=== PATIENT | male | born 1945 | race Caucasian/White ===

== ENCOUNTER → 2016-10-16 | Day surgery (SDC) | payer MEDICARE ==
[~2016-10-16] MED LIST: Acetaminophen TAB* 325 MG PO PRN; Buffered Lidocaine 1% SYR 3ML* 3 ML/SYR SYRINGE INTRADERM ONE; Buffered Lidocaine 1% SYR 3ML* 3 ML/SYR SYRINGE ONE; Bupivacaine 0.25% EPI 200,000* 30 ML SDV ONE; Bupivacaine 0.25% W/EPI* 50 ML VIAL ONE; Bupivacaine 0.5% W/EPI SDV* 30 ML VIAL ONE; Dexamethasone IV* 4 MG/ML 1 ML (4 MG) ONE; DiMENhydriNATE IV* 50 MG/ML VIAL IV PUSH PRN; Famotidine IV* 10 MG/ML 2 ML (20 mg) ONE; HYDROcodone/ACETAMIN 5-325 MG* 1 TAB PO PRN; KETAMINE HCL* 50 MG/ML 10 ML VIAL ONE; Lidocaine 2% MPF* 2 ML VIAL ONE; Methylene Blue 1%* 10 ML VIAL ONE; Midazolam* 1 MG/ML 2 ML VIAL (2 MG) ONE; NS 0.9% 1000 ML* 1,000 ML IV SCH; Ondansetron INJ* 2 MG/ML VIAL IV PRN; Propofol* 10 MG/ML 20 ML BTL IV PUSH ONE; ceFAZolin 2 GM PREMIX (*) 2 GM/50 ML BAG IVPB ONE
[2016-10-16 13:17] VITALS: BP 135/63
== END | disposition home or self-care (01) ==
LOC: OR 08:01
PROVIDERS: ATTEND Plastic Surgery
DX: C44.229 Squamous cell carcinoma of skin of left ear and external auricular canal (principal); I34.0 Nonrheumatic mitral (valve) insufficiency; I35.0 Nonrheumatic aortic (valve) stenosis; R00.1 Bradycardia, unspecified; E03.9 Hypothyroidism, unspecified; E27.40 Unspecified adrenocortical insufficiency
CPT/HCPCS: 88305; 88329; J0690; J1100; J2250; J2704

== ENCOUNTER → 2018-01-28 | Day surgery (SDC) | payer MEDICARE ==
[~2018-01-28] MED LIST changes: -Buffered Lidocaine 1% SYR 3ML* 3 ML/SYR SYRINGE INTRADERM ONE; -Buffered Lidocaine 1% SYR 3ML* 3 ML/SYR SYRINGE ONE; -Bupivacaine 0.25% EPI 200,000* 30 ML SDV ONE; -Bupivacaine 0.25% W/EPI* 50 ML VIAL ONE; -Bupivacaine 0.5% W/EPI SDV* 30 ML VIAL ONE; -Dexamethasone IV* 4 MG/ML 1 ML (4 MG) ONE; -DiMENhydriNATE IV* 50 MG/ML VIAL IV PUSH PRN; +Diazepam TAB(*) 5 MG ONE; -Famotidine IV* 10 MG/ML 2 ML (20 mg) ONE; -HYDROcodone/ACETAMIN 5-325 MG* 1 TAB PO PRN; +Heparin 2 UNITS/ML IVPREMIX* 2,000 ML IV ONE; +Heparin(*) 1000 UNIT/ML 10 ML VIAL CATH LAB IV ONE; +Iohexol 350 (CONTRAST) 200 ML MDV IV ONE; -KETAMINE HCL* 50 MG/ML 10 ML VIAL ONE; +Lidocaine 1% INJ* 10 MG/ML 30 ML SDV ONE; -Lidocaine 2% MPF* 2 ML VIAL ONE; -Methylene Blue 1%* 10 ML VIAL ONE; +Midazolam* 1 MG/ML 10 ML VIAL (10 MG) ONE; -Midazolam* 1 MG/ML 2 ML VIAL (2 MG) ONE; +Nitroglycerin TAB 0.4 MG* 0.4 MG TAB SL PRN; -Ondansetron INJ* 2 MG/ML VIAL IV PRN; -Propofol* 10 MG/ML 20 ML BTL IV PUSH ONE; +VERAPAMIL 2.5 MG/ML 2 ML VIAL ** 5 mg/2 ml ONE; -ceFAZolin 2 GM PREMIX (*) 2 GM/50 ML BAG IVPB ONE; +fentaNYL* 50 MCG/ML 2 ML VIAL (100 MCG VIAL) ONE; +nitroGLYCERIN DRIP* 25,000 MCG/250 ML BTL ONE
[2018-01-28 13:28] VITALS: BP 113/76
--- NOTE | 2018-01-29 11:33 | CATH ---
CC: Dr. Christopher Diego* CARDIAC CATHETERIZATION: DATE OF PROCEDURE: 01/28/18 PROCEDURE: Cardiac catheterization including coronary angiography. INDICATION: Aortic stenosis. The patient is a 72-year-old gentleman with a history of aortic stenosis who has demonstrated progression of his aortic stenosis. The patient clearly has moderate- to-severe aortic stenosis. The patient has shortness of breath with exertion. Cardiac catheterization was recommended in preparation for aortic valve replacement. DESCRIPTION OF PROCEDURE: The patient was brought to the cardiac catheterization lab in a fasting state. Informed consent had been obtained prior to the procedure. All labs have been reviewed. The patient was placed supine on the procedure table. His right wrist was prepped and draped in the usual fashion. 1% lidocaine was used for local anesthesia. The right radial artery was entered by a Seldinger technique and guidewire was placed. Over the guidewire, a 6-Emirati hydrophilic sheath was placed. The patient underwent coronary angiography using a 6-Emirati TIG catheter. At the end of the procedure , all sheaths and catheters were removed. The patient tolerated the procedure well with no complications. The patient was infused with 3000 of heparin, 300 mcg of nitroglycerin and 3 mg of verapamil intraarterially during the procedure. FINDINGS: 1. Left main artery: The left main was normal in size. It bifurcated into the LAD and circumflex. There was no evidence of stenosis. 2. Left anterior descending artery: The LAD was normal in size. It had mild calcification of the proximal vessel. It gave off 2 diagonal vessels. There was no evidence of stenosis. 3. Left circumflex artery. The circumflex artery was normal in size. It gave off 1 obtuse marginal branch. There was no evidence of stenosis. 4. Right coronary artery: The RCA was a large dominant vessel, it gave off PDA. There was mild calcification of the proximal vessel. There was no evidence of stenosis. The patient did have PDA and posterolateral branches off the distal right coronary artery. IMPRESSION: 1. Mild calcification of the proximal left anterior descending and proximal right coronary artery. 2. No significant coronary artery disease. 3. Successful radial artery catheterization. RECOMMENDATION: The patient will be evaluated for aortic valve replacement. [id number] #: [id number] [facility] HOSPITALKenneth
== END | disposition home or self-care (01) ==
LOC: CHICATH 08:14
PROVIDERS: ATTEND Specialist
DX: I35.0 Nonrheumatic aortic (valve) stenosis (principal); R06.02 Shortness of breath; E03.9 Hypothyroidism, unspecified; E27.40 Unspecified adrenocortical insufficiency; Z87.891 Personal history of nicotine dependence
CPT/HCPCS: 93454; 99156; 99157; A9270-GY; J1644; J2250; J3010

== ENCOUNTER 2018-04-16 15:20 | Observation (INO) | payer MEDICARE ==
[2018-04-16] MEDS ORDERED: metroNIDAZOLE IV 500 MG/100ML* 500 MG/100 ML BAG IVPB ONE (15:28)
[2018-04-16] MEDS ORDERED: Cefepime(*) 2 GM in NS 0.9% 50 ML* 50 ML IVPB ONE (15:28)
[2018-04-16] MEDS ORDERED: Lactated Ringers 1000 ml Bag*IV.FLUID IV ONE (15:28)
[2018-04-16] MEDS ORDERED: Acetaminophen TAB* 325 MG PO ONE (15:30)
--- OUTSIDE RECORDS SUMMARY | 2018-04-16 15:31 | XMS REPORT ---
:1945 External Reference #:[id number] Author Organization [facility] Address [address] [place] [address] [place] [address] Phone [phone] Care Team Providers Name Role Phone Saloni Grande MD Care Team Information Group Work Program Aide Unavailable Saloni Grande MD Primary Care Physician Unavailable Payers Type Date Identification Numbers Payment Provider Subscriber Health Maintenance Effective: Policy Number: Medicare Scottie Gonzalez (O) 09/16/2013 [id number] o Group Number: [id number] [address] [address] PayID: [id number] RajeevCJ oliver [id number] Problems Description No Information Family History Date Family Member(s) Problem(s) Comments Mother Alzheimer's Disease Social History Type Date Description Comments Occupation Retired ETOH Use Rarely consumes alcohol Recreational Drug Use Never Used Drugs Smoking Patient is a former smoker quit 40 year ago Daily Caffeine Consumes on average 3 cups of regular coffee per day Exercise Type/Frequency Exercises regularly Allergies, Adverse Reactions, Alerts Date Description Reaction Status Severity Comments 10/01/2014 NKDA active 01/22/2018 Latex active Medications Medication Date Status Form Strength Qnty SIG Indications Ordering Provider Dha Active Capsules 400mg 1 cap Carlo Parry 015 per Brand, day(trey M.D. ing 500mg ) Turmeric Active Capsules 200mg 1 by Carlo D. 015 mouth Brand, every M.D. day Levothyroxine Active Tablets 100mcg 90tabs 1 by Unknown Sodium 000 mouth every day Co Q 10 Active Capsules 50mg daily Unknown 000 Fish Oil 00/00/0 Active Capsules 1000mg 1 by Unknown 000 mouth every day Vit E 0 Active 400mg 1 tab q Unknown 000 day Jessica-C 0 Active Crystals 500mg 1 tab Unknown 000 per day Vit D3 0 Active 1 per Unknown 000 day Dhea 0 Active Capsules 25mg 1 by Unknown 000 mouth every day Multivitamin 0 Active Tablets 1 by Unknown 000 mouth every day Warfarin Sodium 0 Active Tablets 2mg Kevin, 000 MD Saloni Metoprolol Active Tablets ER 25mg 1 by Unknown Succinate ER 000 24HR mouth every day Cortef 0 Hx Tablets 10mg 1 tab Unknown 000 - in am and 09/17 018 in pm Vital Signs Date Vital Result Comment 04/02/2018 Height 64.5 inches 5'4.50" Weight 146.00 lb w/ shoes Heart Rate 68 /min BP Systolic Sitting 134 mmHg Rue reg cuff BP Diastolic Sitting 74 mmHg Rue reg cuff BP Systolic Standing 132 mmHg Rue BP Diastolic Standing 74 mmHg Rue Respiratory Rate 16 /min BMI (Body Mass Index) 24.7 kg/m2 Ejection Fraction 60-65% as of 12/2017 echo 02/04/2018 Height 64.5 inches 5'4.50" Weight 147.00 lb with shoes Heart Rate 50 /min BP Systolic Sitting 104 mmHg Rue reg cuff BP Diastolic Sitting 54 mmHg Rue reg cuff BP Systolic Standing 110 mmHg Rue reg cuff BP Diastolic Standing 60 mmHg Rue reg cuff Respiratory Rate 16 /min BMI (Body Mass Index) 24.8 kg/m2 Ejection Fraction 60-65% date 01/01/18 ECHO 01/22/2018 Height 64.5 inches 5'4.50" Weight 147.00 lb with shoes Heart Rate 56 /min BP Systolic Sitting 102 mmHg Lue reg cuff BP Diastolic Sitting 70 mmHg Lue reg cuff BP Systolic Standing 114 mmHg Lue reg cuff BP Diastolic Standing 70 mmHg Lue reg cuff Respiratory Rate 16 /min BMI (Body Mass Index) 24.8 kg/m2 Ejection Fraction 60-65% date 01/01/2018 ECHO 10/28/2014 Height 64.5 inches 5'4.50" Weight 155.00 lb with shoes Heart Rate 60 /min regular BP Systolic Sitting 110 mmHg right arm reg cuff BP Diastolic Sitting 68 mmHg right arm reg cuff BP Systolic Standing 106 mmHg right arm reg cuff BP Diastolic Standing 66 mmHg right arm reg cuff Respiratory Rate 18 /min BMI (Body Mass Index) 26.2 kg/m2 10/01/2014 Height 64.5 inches 5'4.50" Weight 153.00 lb without shoes Heart Rate 58 /min BP Systolic 162 mmHg r arm reg cuff BP Diastolic 88 mmHg r arm reg cuff BP Systolic Sitting 158 mmHg L arm BP Diastolic Sitting 82 mmHg L arm BP Systolic Standing 156 mmHg L arm BP Diastolic Standing 78 mmHg L arm Respiratory Rate 18 /min BMI (Body Mass Index) 25.9 kg/m2 Results Test Date Test Result H/L Range Note CBC Auto Diff 01/23/2018 White Blood Count 6.2 10^3/uL 3.5-10.8 Red Blood Count 3.84 10^6/uL Low 4.0-5.4 Hemoglobin 12.7 g/dL Low 14.0-18.0 Hematocrit 36 % Low 42-52 Mean Corpuscular Volume 94 fL 80-94 Mean Corpuscular Hemoglobin 33 pg High 27-31 Mean Corpuscular HGB Conc 35 g/dL 31-36 Red Cell Distribution Width 14 % 10.5-15 Platelet Count 238 10^3/uL 150-450 Mean Platelet Volume 8.3 um3 7.4-10.4 Abs Neutrophils 3.7 10^3/uL 1.5-7.7 Abs Lymphocytes 1.6 10^3/uL 1.0-4.8 Abs Monocytes 0.7 10^3/uL 0-0.8 Abs Eosinophils 0.2 10^3/uL 0-0.6 Abs Basophils 0.1 10^3/uL 0-0.2 Abs Nucleated RBC 0 10^3/uL Granulocyte % 58.8 % 38-83 Lymphocyte % 25.6 % 25-47 Monocyte % 11.5 % High 0-7 Eosinophil % 3.0 % 0-6 Basophil % 1.1 % 0-2 Nucleated Red Blood Cells % 0.1 Inr/Protime 01/23/2018 Inr 0.95 0.77-1.02 Laboratory test finding 01/23/2018 Partial Thrombo Time 32.3 seconds 26.0 -36.3 PTT Basic Metabolic Panel 01/23/2018 Sodium 129 mmol/L Low 139-145 Potassium 4.5 mmol/L 3.5-5.0 Chloride 98 mmol/L Low 101-111 Co2 Carbon Dioxide 24 mmol/L 22-32 Anion Gap 7 mmol/L 2-11 Glucose 89 mg/dL 70-100 Blood Urea Nitrogen 19 mg/dL 6-24 Creatinine 1.00 mg/dL 0.67-1.17 BUN/Creatinine Ratio 19.0 8-20 Calcium 9.4 mg/dL 8.6-10.3 Egfr Non- 73.2 >60 Egfr 94.2 >60 1 Pre Cath Panel 01/22/2018 Partial Thrombo Time PTT <pending> 1 Because ethnic data is not always readily available, this report includes an eGFR for both -Americans and non- Americans. The National Kidney Disease Education Program (NKDEP) does not endorse the use of the MDRD equation for patients that are not between the ages of 18 and 70, are , have extremes of body size, muscle mass, or nutritional status, or are non- or non-. According to the National Kidney Foundation, irrespective of diagnosis, the stage of the disease is based on the level of kidney function: Stage Description GFR(mL/min/1.73 m(2)) 1 Kidney damage with normal or decreased GFR 90 2 Kidney damage with mild decrease in GFR 60-89 3 Moderate decrease in GFR 30-59 4 Severe decrease in GFR 15-29 5 Kidney failure <15 (or dialysis) Procedures Date CPT Code Description Status 04/02/2018 22317 EKG Tracing & Interpretation Completed 01/28/2018 25403 Cath PLMT&NJX L Ventriculog Img S&I Completed 01/01/2018 87346 ECHO Transthoracic, Real-Time 2D With Doppler And Color Completed Flow 01/01/2018 94883 ECHO Transthoracic, Real-Time 2D With Doppler And Color Completed Flow 12/13/2016 04607 Carotid Doppler,Bilateral Completed 12/12/2016 42844 ECHO Transthoracic, Real-Time 2D With Doppler And Color Completed Flow 08/04/2015 61483 Sleep Study Unattended,HRT Rate,Oxygen Sat,Resp Completed Effort/Airflow 10/19/2014 91755 Treadmill Interp/Report Only Completed 10/19/2014 59762 Stress Test Supervsn W/Out I/R Completed 10/08/2014 38348 Carotid Doppler,Bilateral Completed 10/01/2014 78696 EKG Tracing & Interpretation Completed 08/23/2014 30583 ECHO Transthoracic, Real-Time 2D With Doppler And Color Completed Flow Encounters Type Date Location Provider CPT E/M Dx Office Visit 02/04/2018 [facility] Julee BraulioKemi Hughes, [id number] I35.0 3:30p 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 Office Visit 01/22/2018 [facility] Carlo Luther, 61939 I35.0 11:15a Sergey Rhoades Office Visit 10/28/2014 [facility] Carlo Luther, 95300 786.05 10:45a Sergey Rhoades 424.1 Office Visit 10/01/2014 11:00a [facility] Carlo Luther, 88858 424.1 Sergey Rhoades 786.05 785.9 Plan of Care Future Appointment(s):06/04/2018 9:00 am - Carlo Luther M.D. at [facility]05/30/2018 2:00 pm - [facility] ECHO Schedule at [facility]04/02/2018 - Carlo Luther M.D.I35.0 Nonrheumatic aortic (valve) [id number] Presence of prosthetic heart valveNew Orders:EchocardiogramFollow up:2 months
[2018-04-16] MEDS ORDERED: Vancomycin(*) 1,000 MG VIAL IVPB SCH (16:00)
[2018-04-16] MEDS ORDERED: Vancomycin(*) 1,000 MG - ED ONCE IVPB ONE ×2 (16:00)
[2018-04-16 16:19] LABS: INR 1.07 (0.77-1.02)
[2018-04-16 16:22] LABS: ABS Basophils 0 10^3/ul (0-0.2); ABS Eosinophils 0 10^3/ul (0-0.6); ABS Lymphocytes 0.5 10^3/ul (1.0-4.8); ABS Monocytes 1.2 10^3/ul (0-0.8); ABS Neutrophils 10.8 10^3/ul (1.5-7.7); ABS Nucleated RBC 0 10^3/ul; Eosinophil % 0.1 % (0-6); Hematocrit 33 % (42-52); Hemoglobin 11.4 g/dl (14.0-18.0); Lymphocyte % 3.7 % (25-47); Mean Corpuscular HGB Conc 34 g/dl (31-36); Mean Corpuscular Hemoglobin 31 pg (27-31); Mean Corpuscular Volume 91 fL (80-94); Mean Platelet Volume 7.5 um3 (7.4-10.4); Nucleated Red Blood Cells % 0; Platelet Count 145 10^3/ul (150-450); Red Blood Count 3.62 10^6/ul (4.00-5.40); Red Cell Distribution Width 16 % (10.5-15); White Blood Count 12.4 10^3/ul (3.5-10.8)
[2018-04-16] MEDS ORDERED: NS 0.9% 50 ML* 50 ML ONE (16:23)
[2018-04-16 16:32] LABS: EGFR Non-African American 64.9 (>60)
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
--- NOTE | 2018-04-16 16:37 | RAD ---
INDICATION: Syncope COMPARISON: None. TECHNIQUE: Single AP portable view of the chest was obtained. FINDINGS: Image quality is compromised due to the relative inferiority of a portable chest x-ray. Postsurgical changes include sternotomy wires overlying the mediastinum. The heart and mediastinum exhibit normal size and contour. There are coarsely calcified plaques overlying the bilateral hemidiaphragm at the lung bases. Otherwise the lungs are grossly clear. There is no evidence of a large pleural effusion. Visualized bones are normal for the patient's age. IMPRESSION: 1. No radiographic evidence for acute cardiopulmonary abnormality on this portable chest x-ray. 2. Coarsely calcified plaques overlying the bilateral hemidiaphragm. Please correlate to prior asbestos exposure.
[2018-04-16] MEDS ORDERED: Acetaminophen TAB* 325 MG PO PRN (17:55)
[2018-04-16] MEDS ORDERED: metroNIDAZOLE IV 500 MG/100ML* 500 MG/100 ML BAG IVPB SCH (18:00)
[2018-04-16] MEDS ORDERED: cefTRIAXone(*) 1 GM in NS 0.9% 50 ML* 50 ML IVPB SCH ×2 (18:00→23:00)
[2018-04-16] MEDS ORDERED: NS 0.9% 1000 ML* 1,000 ML IV SCH (18:00)
[2018-04-16] MEDS ORDERED: Cefepime 2 GM in Dextrose(*) 2 GM/50 ML BAG IV ONE (18:00)
[2018-04-16] MEDS: Hydrocortisone INJ* 100 MG VIAL IV SCH (23:23)
[2018-04-16] MEDS: Heparin VIAL(*) 5000 UNITS/ML VIAL (FIVE THOUSAND) SUBCUT SCH (23:29)
[2018-04-17] MEDS: metroNIDAZOLE IV 500 MG/100ML* 500 MG/100 ML BAG IVPB SCH ×2 (00:07→09:04)
--- NOTE | 2018-04-17 02:03 | HP ---
CC: Dr. Saloni Grande; Dr. Luther * HISTORY AND PHYSICAL: DATE OF ADMISSION: 04/16/18. PRIMARY CARE PROVIDER: Dr. Saloni Grande. PRIMARY SAFETY SCIENTIST: Dr. Luther. MY ATTENDING PHYSICIAN WHILE IN THE HOSPITAL: Sarah Goyal DO * (report dictated by Ace Lay NP). CHIEF COMPLAINT: 1. Dizziness. 2. Redness to right forearm. HISTORY OF PRESENT ILLNESS: Mr. Mendoza is a 72-year-old male patient, who last night, he was sitting down, he had an episode where he was holding his cat. The patient changed positions quickly, the cat got upset and scratched his right arm pretty significantly. He overnight had chills. The said that he looked like he was having rigors. She said that he was having chills. He was shaking. He was drenched in sweat. She wanted him to go to the ER today, but he felt that he did not need to. Throughout the day today, he has had 3 episodes where he just got really dizzy, felt like he was almost going to faint. He did not faint. He said he has felt really dizzy. He felt like he was just very lightheaded, it was mostly positional. He denied having any sensation of the room spinning. He says that he most likely probably had a fever last night. He was documented to have one here today. He says he has been eating and drinking like he normally does. He does state that he had a recent valve replacement. He saw his primary parachute rigger week- and-a-half ago and everything was okay. He stopped his warfarin and amiodarone. He had a bovine valve placed to his aortic valve for severe aortic stenosis. He is denying any chest pain. He does not feel short of breath. He denies any palpitations and says he did not pass out. He says that he got dizzy today to the point where he tripped and fell, and he landed on his side, but he is not having any discomfort or pain. He denies having any, again, no syncope. He denied any trouble with his speech. He says his gait has not been off, he has been walking normally. He says he has not had any facial drooping and no weakness to one side. He was just concerned though because of his dizziness and the fact that it was noted by this afternoon that his arm was getting more red, it was starting to spread up towards his elbow and it was very painful to try to make a fist or open his right hand. He came into the ED today, it was noted that he had an elevated white count. In addition to this, he had a left shift on his differential. He had a mild fever. There was concern also because of these episodes where he was having dizziness and we were asked to evaluate for admission. PAST MEDICAL HISTORY: Significant for: 1. Aortic stenosis, status post bovine valve placement. 2. Hypothyroidism. 3. Adrenal hypofunction, which he does not take steroids for. PAST SURGICAL HISTORY: He has had aortic valve replacement, done 6 weeks ago with a bovine valve. HOME MEDICATIONS: Include: 1. Synthroid 100 mcg p.o. daily. 2. Vitamin E 400 units p.o. daily. 3. Co-enzyme Q10 200 mg daily. 4. Turmeric 200 mg p.o. daily. 5. DHEA 400 mg p.o. daily. 6. [place]-3 fatty acids 1000 mg daily. 7. DHA 600 mg daily. 8. D3 4000 units daily. 9. Vitamin C 500 mg daily. 10. Multivitamin 1 tablet daily. ALLERGIES TO MEDICATIONS: Include no known drug allergies. FAMILY HISTORY: Mother has a history of dementia. Father had a history of [place]. SOCIAL HISTORY: The patient does not smoke. He does not drink. Surrogate decision maker is his . REVIEW OF SYSTEMS: There is a documented fever here. He does not have any chills overnight. He denies any significant weight change. There is no double vision. He denies having any ear discharge. There is no rhinorrhea. Denies having any sore throat. There is no thyroid enlargement. Denies having any chest pain. There is no orthopnea. There is no nocturnal dyspnea. Denies having any abdominal pain. There is no nausea. No vomiting. There is no dysuria. There is no frequency. There is no seizure. He denied any loss of consciousness. Review of 14 systems was completed, all others negative. PHYSICAL EXAMINATION GENERAL: At this time, Mr. Mendoza is a 72-year-old male patient. He is sitting in the ED stretcher. He does not appear to be in any acute distress. He appears to be well-nourished and well-developed. VITAL SIGNS: Blood pressure 110/59, pulse 82, respirations 20, O2 sat 95%, temperature 100.9. HEENT: Head: Atraumatic and normocephalic. Eyes: EOMs are intact. Sclerae anicteric and not pale. Throat: Oral mucosa appears to be moist. No oropharyngeal erythema. NECK: Supple. LUNGS: Clear to auscultation bilaterally. No wheezes, rales, or rhonchi. HEART: Sounds S1, S2. He has a grade 2 to 3 aortic murmur. ABDOMEN: Soft, flat, nontender. Bowel sounds were present. EXTREMITIES: Pulses were 2+ throughout. He had 5/5 strength, particularly the right upper extremity, he had supination, pronation of the right upper extremity. He had flexion and extension of the fingers and he had full mobility of the wrist on the right side. He had good 5/5 strength in bilateral upper extremities. He had some erythema to the mid forearm extending up to just below the elbow, but again he had good range of motion to the elbow, into the wrist, into his fingers of that right arm, which is the affected arm. NEUROLOGICALLY: He is awake. He is alert. He is oriented x3. Speech is clear. Tongue midline. Home Health Occupational Therapist were equal. He had no gross focal deficits. SKIN: Intact exception of the puncture sites from the cat scratch. DIAGNOSTIC STUDIES/LAB DATA: Labs today, revealing a WBC 12.4, RBC of 3.62, hemoglobin 11.4, hematocrit 33, platelet count of 145, INR of 1.07. PTT 26.1. Sodium of 128, potassium of 3.7, chloride 99, bicarb was 21, BUN 20, creatinine 1.11, glucose 123, lactic 0.9, calcium 1.6. Total bili 0.5. AST 23, ALT 17. Alk phos 27. Troponin 0.01. Albumin was 3.5. He did have a chest x-ray obtained today, which revealed no radiographic evidence for acute cardiopulmonary abnormality on this portable x-ray. 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 He had an EKG obtained today, showing a normal sinus rhythm with a left axis deviation rate of 77. No ST elevations or T-wave inversions. He did have a heart catheterization done in January with Dr. Luther, which showed again normal coronary arteries, but a severe AF. Old medical records reviewed. ASSESSMENT AND PLAN: Mr. Mendoza is a 72-year-old male patient coming into the ER today with complaints of dizzy spells. He has had 3 of them today. He is very adamant that he did not passed out with these episodes. We were asked to evaluate for admission. He will be admitted under observation status for: 1. Dizziness. At this point, you know it could be secondary to orthostasis. He does have a history of adrenal hypofunction. I would like to get a random cortisol level. I think he does observe orthostatic blood pressures. In addition to all this and echo. We will cycle his troponins. Place him on telemetry to monitor for any arrhythmias. We will repeat the echo tomorrow. He is stable now. He has responded to fluids. He says he is feeling better. I am going to put him on stress steroids empirically. We could consider getting touch base with Dr. Stockton tomorrow as he did see him previously to see if he has any further recommendations. We will get his TSH and cortisol level. If he continues to have dizzy spells then I certainly would get a CT of the brain, possibly MRI and get Neurology input, but he is nonfocal on exam so I think this is probably secondary to the dehydration orthostasis secondary to adrenal hypofunction and I will continue to follow. 2. Cellulitis. Again, I will just put on Rocephin and Flagyl. Continue to follow. He has been spencer cultured. He has got 30 cc/kg IV fluid bolus here in the ED and lactic is stable. 3. Hypothyroidism. Checking TSH and continue his Synthroid. 4. Adrenal hypofunction. I am going to put him empirically on 50 q.8 of hydrocortisone and we will be checking a random cortisol. We will continue to follow. 5. DVT prophylaxis: He will be placed on heparin subcu. 6. Code status: Full code. 7. Fluids, electrolytes, and nutrition: He can have a heart-healthy diet. TIME SPENT: Time spent on the admission was 60 minutes, greater than half the time was spent [id number] with the patient obtaining my history and physical. Other half of the time spent going over the plan of care with the patient and implementing the plan of care. I discussed the plan of care with my attending, Dr. Jay Jay, she is in agreement. ACE LAY NP [id number]/[facility] #: [id number] TAMRA
[2018-04-17] MEDS: Hydrocortisone INJ* 100 MG VIAL IV SCH ×2 (02:37→10:50)
[2018-04-17] MEDS: Heparin VIAL(*) 5000 UNITS/ML VIAL (FIVE THOUSAND) SUBCUT SCH ×2 (05:11→14:53)
[2018-04-17] MEDS ORDERED: Levothyroxine TAB* 100 MCG TAB PO SCH (06:00)
[2018-04-17 06:53] LABS: ABS Basophils 0 10^3/ul (0-0.2); ABS Eosinophils 0 10^3/ul (0-0.6); ABS Lymphocytes 0.7 10^3/ul (1.0-4.8); ABS Monocytes 1.1 10^3/ul (0-0.8); ABS Neutrophils 11.1 10^3/ul (1.5-7.7); ABS Nucleated RBC 0 10^3/ul; Eosinophil % 0.1 % (0-6); Hematocrit 30 % (42-52); Hemoglobin 10.2 g/dl (14.0-18.0); Lymphocyte % 5.3 % (25-47); Mean Corpuscular HGB Conc 34 g/dl (31-36); Mean Corpuscular Hemoglobin 32 pg (27-31); Mean Corpuscular Volume 92 fL (80-94); Mean Platelet Volume 7.2 um3 (7.4-10.4); Nucleated Red Blood Cells % 0.1; Platelet Count 120 10^3/ul (150-450); Red Blood Count 3.23 10^6/ul (4.00-5.40); Red Cell Distribution Width 16 % (10.5-15); White Blood Count 12.9 10^3/ul (3.5-10.8)
[2018-04-17 07:09] LABS: EGFR Non-African American 79.6 (>60)
[2018-04-17 10:28] LABS: Urine Appearance Clear; Urine Blood Negative (Negative); Urine Color Yellow; Urine Ketones Negative (Negative); Urine Protein Negative (Negative); Urine Specific Gravity 1.009 (1.010-1.030); Urine Urobilinogen Negative (Negative)
[2018-04-17 15:41] VITALS: BP 111/53
[2018-04-17] MEDS ORDERED: Amoxicillin/Clavulanate TAB* 875 MG PO SCH (15:45)
--- NOTE | 2018-04-17 15:49 | ECHO ---
Patient: MARCO ANTONIO COPELAND [facility] Rec#: [id number] : 1945 Date: 04/17/2018 Age: 72y Height: 165.1 cm / 65.0 in Weight: 65.8 kg / 145.0 lbs Sex: M BSA: 1.7 Room#: [facility] Admit Date#: 04/16/2018 Type: Inpatient Referring: Ace Lay NP Reading: Ahmet Mei MD Astrobiologist: Swathi Ring RN RDCS CC: Carlo Luther MD CC: Saloni Grande Transthoracic Echocardiogram Indication: Dizziness, recent bovine AVR BP: 108/57 HR: 68 Rhythm: NSR Findings History: Bovine aortic valve replacement 6 weeks ago for severe , hypothyroidism, adrenal hypofunction, currently with right forearm cellulitis and fever related to cat scratches Technical Comments: The study quality is fair. Left Ventricle: The left ventricular chamber size is normal. Mild concentric left ventricular hypertrophy is observed. Global left ventricular wall motion and contractility are within normal limits. There is normal left ventricular systolic function. The estimated ejection fraction is 60-65%. Ventricular septal wall motion has a post-operative appearance. Normal left ventricular diastolic filling is observed. Left Atrium: The left atrium is slightly dilated. Right Ventricle: The right ventricle is slightly dilated. The right ventricular global systolic function is low normal. Right Atrium: The right atrium is mildly dilated. Aortic Valve: There is no evidence of aortic regurgitation. The mean gradient of the aortic valve is 15.3 mmHg. The peak instantaneous gradient of the aortic valve is 29.9 mmHg. The aortic valve area, by peak velocities, is calculated at 1.7 cm2. The aortic valve area, by VTI's, is calculated at 1.7 cm2. The highest aortic valve velocity was obtained with the standard probe from the A5C view. A bovine bio-prosthetic aortic valve is present. The bio-prosthetic aortic valve appears to be functioning normally. Mitral Valve: The mitral valve leaflets are mildly thickened. There is a trace of mitral regurgitation. There is no evidence of mitral stenosis. Tricuspid Valve: The tricuspid valve leaflets are normal. There is mild to moderate tricuspid regurgitation. No pulmonary hypertension is noted. There is no tricuspid stenosis. Pulmonic Valve: The pulmonic valve appears normal. There is a trace pulmonic regurgitation. There is no pulmonic stenosis. Pericardium: There is no significant pericardial effusion. Aorta: There is no dilatation of the ascending aorta. There is no dilatation of the aortic arch. There is no dilation of the aortic root. Pulmonary Artery: The main pulmonary artery appears normal. Venous: The inferior vena cava appears normal in size. There is an approximate 50% respiratory change in the inferior vena cava dimension. Conclusions Mild concentric left ventricular hypertrophy is observed. There is normal left ventricular systolic function. The estimated ejection fraction is 60-65%. Ventricular septal wall motion has a post-operative appearance. A bovine bio-prosthetic aortic valve is present. The bio-prosthetic aortic valve appears to be functioning normally. There is a trace of mitral regurgitation. There is mild to moderate tricuspid regurgitation. No pulmonary hypertension is noted. Compared to report of study from 01/01/2018 the aortic valve has been replaced. the tricuspid regurgitation may be slight praneeth (was mild). Measurements Name Value Normal Range RVIDd (AP) 2D 2.7 cm (0.9 - 2.6) RVDdMajor (2D) 4 cm (2.2 - 4.4) RAd ISD 4CH 5.6 cm (3.4 - 4.9) RA (A4C)W 4.2 cm (2.9 - 4.6) IVSd (2D) 1.1 cm (0.6 - 1) LVPWd (2D) 1.1 cm (0.6 - 1) LVIDd (2D) 3.9 cm (3.6 - 5.4) LVIDs (2D) 2.7 cm - LV FS (2D) 31 % (25 - 45) Aortic Annulus 1.6 cm (1.4 - 2.6) Ao root diameter (2D) 2.4 cm (2.1 - 3.5) Ascending Ao 3.3 cm (2.1 - 3.4) Aortic arch 2.2 cm (1.8 - 3.4) LA dimension (AP) 2D 3.3 cm (2.3 - 3.8) LAd ISD 4CH 5.4 cm (2.9 - 5.3) LA ISD 4CH W 4.3 cm (2.5 - 4.5) Name Value Normal Range LA ESV SP 4CH (A/L) 56 ml - LA ESV SP 2CH (A/L) 57 ml - LA ESV BP (A/L) 57 ml - LA ESV BP (A/L) index 33 ml/m2 - LA ESV SP 4CH (MOD) 51 ml - LA ESV SP 2CH (MOD) 52 ml - Name Value Normal Range MV E-wave Vmax 0.93 m/sec - MV deceleration time 215 msec - MV A-wave Vmax 0.68 m/sec - MV E:A ratio 1.4 ratio - LV septal e' Vmax 0.07 m/sec - LV lateral e' Vmax 0.11 m/sec - LV E:e' septal ratio 13.3 ratio - LV E:e' lateral ratio 8.5 ratio - Name Value Normal Range AV Vmax 2.7 m/sec - AV VTI 59.1 cm - AV peak gradient 29.9 mmHg - AV mean gradient 15.3 mmHg - LVOT diameter 1.9 cm - LVOT Vmax 1.6 m/sec - LVOT VTI 35.2 cm - LVOT peak gradient 9.6 mmHg - LVOT mean gradient 5.3 mmHg - DOI (VTI) 0.6 ratio - DOI (Vmax) 0.59 ratio - ANTONIO (continuity Vmax) 1.7 cm2 - ANTONIO (continuity VTI) 1.7 cm2 - BARBARA Vmax 0.76 m/sec - Name Value Normal Range TR Vmax 2.4 m/sec - TR peak gradient 23 mmHg - RAP 8 mmHg - RVSP 31 mmHg - IVC diameter 1.7 cm - Name Value Normal Range PV Vmax 0.85 m/sec -
--- NOTE | 2018-04-18 10:48 | DS ---
CC: Saloni Grande MD DISCHARGE SUMMARY: DATE OF ADMISSION: DATE OF DISCHARGE: 04/17/18 HISTORY: This 72-year-old man presented with dizziness and swelling and redness of his right forearm and some stiffness, his cat had scratched his right arm the night before he said. They were really deep punctures, they are not really scratches on examination. He had some dizzy spells. He thought he was having chills and sweats. He was treated initially with ceftriaxone and metronidazole. He wi ll be given a dose of amoxicillin clavulanate before discharge and he will take 875 mg b.i.d. for 7 d ays. He had significant improvement overnight with much improvement in the pain, swelling, and redne ss of his right arm, which is still noticeably larger than his left arm and slightly red. There were a number of small puncture leslie, but the skin otherwise appeared quite intact. He said he had a li ttle trouble opening his right hand fingers all the way, but this has also improved since yesterday. There was a little bit of pain with extension of his right arm, I noted he is left handed. I noticed lactic acid level in the emergency room was 0.9 with a repeat of 1.3. He was given intrave nous fluids as well. He had his cortisol level checked. He has a history of being treated for hypoa ctive adrenal in [place]. Dr. Stockton tapered him off prednisone. His cortisol level here was 32.5 . TSH is 0.55. FINAL DIAGNOSES: 1. Infection, right arm due to cat puncture wounds. 2. Recent tissue aortic valve replacement. 3. Hypothyroidism. DISCHARGE MEDICATIONS: 1. Amoxicillin clavulanate 875 mg b.i.d. for 7 days. 2. Prasterone 400 mg daily. 3. Vitamin D3 4000 units daily. 4. Vitamin E 400 units daily. 5. Ascorbic acid 500 mg daily. 6. [place]-3 fatty acids 1000 mg daily. 7. CoQ vitamin E 200 mg daily. 8. Turmeric 200 mg daily. 9. DHA 600 mg daily. 10. Multivitamin 1 daily. 11. Levothyroxine 100 mcg daily. [id number]/[facility] #: [id number]
== END 2018-04-17 16:28 | disposition home or self-care (01) ==
LOC: ED 15:20 → MEDTELE 18:13
PROVIDERS: ADMIT Hospitalist; ATTEND Internal Medicine
DX: S51.831A Puncture wound without foreign body of right forearm, initial encounter (principal); L08.9 Local infection of the skin and subcutaneous tissue, unspecified; W55.01XA Bitten by cat, initial encounter; Y92.9 Unspecified place or not applicable; Z95.4 Presence of other heart-valve replacement; E03.9 Hypothyroidism, unspecified; R55 Syncope and collapse; Z87.891 Personal history of nicotine dependence; R50.9 Fever, unspecified; R11.0 Nausea; E87.1 Hypo-osmolality and hyponatremia
CPT/HCPCS: 36415; 71045; 80048; 80053; 81003; 82533; 83605; 84443; 84484; 85025; 85610; 85730; 87040; 93005; 93306; 96365; 96366; 99284; A9270-GY; G0378; J0692; J0696; J1644; J1720; J3370; J3490

== ENCOUNTER 2019-03-24 10:40 | Day surgery (SDC) | payer MEDICARE ==
[~2019-03-24 10:40] MED LIST changes: +Buffered Lidocaine 1% SYRIN* 1 ML/SYRINGE INTRADERM ONE; -Diazepam TAB(*) 5 MG ONE; -Heparin 2 UNITS/ML IVPREMIX* 2,000 ML IV ONE; -Heparin(*) 1000 UNIT/ML 10 ML VIAL CATH LAB IV ONE; -Iohexol 350 (CONTRAST) 200 ML MDV IV ONE; -Lidocaine 1% INJ* 10 MG/ML 30 ML SDV ONE; -Midazolam* 1 MG/ML 10 ML VIAL (10 MG) ONE; -NS 0.9% 1000 ML* 1,000 ML IV SCH; -Nitroglycerin TAB 0.4 MG* 0.4 MG TAB SL PRN; -VERAPAMIL 2.5 MG/ML 2 ML VIAL ** 5 mg/2 ml ONE; -fentaNYL* 50 MCG/ML 2 ML VIAL (100 MCG VIAL) ONE; -nitroGLYCERIN DRIP* 25,000 MCG/250 ML BTL ONE
[2019-03-24] MEDS ORDERED: Midazolam* 1 MG/ML 2 ML VIAL (2 MG) ONE (12:57)
[2019-03-24] MEDS ORDERED: fentaNYL* 50 MCG/ML 2 ML VIAL (100 MCG VIAL) ONE (12:57)
[2019-03-24 14:05] VITALS: BP 123/63
--- NOTE | 2019-03-24 15:36 | OP ---
DATE OF OPERATION: 03/24/19 [facility] DATE OF : 43 SURGEON: Dr. Josue Hicks. WAFER POLISHING LEAD WORKER: None. ANESTHESIA: Topical with intravenous sedation. PRE-OP DIAGNOSIS: Cataract, left eye. POST-OP DIAGNOSIS: Cataract, left eye. OPERATIVE PROCEDURE: Phacoemulsification and cataract extraction with posterior chamber intraocular lens implant, left eye. COMPLICATIONS: None. BLOOD LOSS: None. DESCRIPTION OF PROCEDURE: The patient was brought to the operating room and received a small amount of intravenous sedation. A drop of Tetracaine was placed in his left eye. He was prepped and draped in the usual sterile fashion for ophthalmic surgery and attention was directed to the left eye, where a speculum was placed. A paracentesis was created at the 5 o'clock position and 0.1 cc of 1 percent preservative-free lidocaine was injected into the anterior chamber followed by DisCoVisc. The eye was digitally stabilized while a 2.75 mm keratome was used to create a triplanar clear corneal incision at the 3 o' clock position. A continuous curvilinear capsulorrhexis was created with a cystotome and Utrata forceps. BSS on a cannula was used to hydrodissect the lens from the capsule. Phacoemulsification was performed in a divide-and- conquer technique to create four fragments which were removed. Residual cortical material was removed with irrigation and aspiration. DisCoVisc was used to inflate the capsular bag and an AU00T0 13.5 Diopter lens was folded and inserted into the capsular bag. DisCoVisc was removed using irrigation and aspiration. BSS on a cannula was used to hydrate the corneal stroma and seal the wound. At the end of the case the pupil was round and the lens was centered. The eye was of normal pressure and the wound was water tight. The speculum was removed and topical Maxitrol ointment was placed on the surface of the eye. The eye was closed, patched and shielded and the patient was sent to the recovery room in stable condition with post operative instructions and follow-up appointment given. [id number]/[facility] #: [id number] TAMRA
[2019-03-24] MEDS ORDERED: Tetracaine 0.5% OPTH.SOL 4 ML* 1 DROP BTL ONE (15:37)
[2019-03-24] MEDS ORDERED: Lidocaine 1% MPF ** 5 ML VIAL ONE (15:37)
[2019-03-24] MEDS ORDERED: Tropicamide 1% OPTH.SOL* BTL ONE (15:37)
[2019-03-24] MEDS ORDERED: Cyclopentolate 1% OPTH.SOL* 2 ML BTL ONE (15:37)
[2019-03-24] MEDS ORDERED: Neomycin/Polymy/Dex OPHTH.OIN* 3.5 GM ONE (15:37)
[2019-03-24] MEDS ORDERED: Ketorolac 0.5% OPHTH (NF) 0.5 % 5 ML BTL ONE (15:37)
[2019-03-24] MEDS ORDERED: Phenylephrine OPHTH SOL 2.5%* 2 ML ONE (15:37)
== END 2019-03-24 13:57 | disposition home or self-care (01) ==
LOC: OREAST 10:40
PROVIDERS: ATTEND Ophthalmology
DX: H25.12 Age-related nuclear cataract, left eye (principal); Z85.828 Personal history of other malignant neoplasm of skin; Z95.2 Presence of prosthetic heart valve; Z87.891 Personal history of nicotine dependence; E03.9 Hypothyroidism, unspecified
CPT/HCPCS: A9270-GY; J2250; J3010; V2632

== ENCOUNTER → 2019-07-30 12:32 | Day surgery (SDC) | payer MEDICARE ==
[~2019-07-30 12:32] MED LIST changes: -Acetaminophen TAB* 325 MG PO PRN; +Artificial Tear OPHTH.OINT* 3.5 GM ONE; +BSS OPTH.SOL* BTL ONE; +Bupivacaine 0.25% SDV PF* 10 ML VIAL INJ ONE; +Dexamethasone IV* 4 MG/ML 1 ML (4 MG) IV SLOW PU ONE; +Dexamethasone IV* 4 MG/ML 1 ML (4 MG) ONE; +Famotidine IV* 10 MG/ML 2 ML (20 mg) IV ONE; +Famotidine IV* 10 MG/ML 2 ML (20 mg) ONE; +Lactated Ringers 1000 ML Bag* 1,000 ML IV SCH; +Lidocaine 1% w EPI 1:100,000* MDV 20 ML VIAL ONE; +Midazolam* 1 MG/ML 2 ML VIAL (2 MG) ONE; +Mineral Oil Sterile, TOPICAL* 25 ML BTL ONE; +Ondansetron INJ* 2 MG/ML VIAL ONE; +Povidone Iodine 5% OPTH* 30 ML BTL ONE; +Propofol* 10 MG/ML 20 ML BTL ONE; +ceFAZolin 2 GM in NS PREMIX(*) 2 GM/100 ML BAG IVPB ONE; +fentaNYL* 50 MCG/ML 2 ML VIAL (100 MCG VIAL) ONE
[2019-07-30 18:54] VITALS: BP 106/60
== END | disposition home or self-care (01) ==
LOC: OR 12:32
PROVIDERS: ATTEND Plastic Surgery
DX: C44.329 Squamous cell carcinoma of skin of other parts of face (principal); E03.9 Hypothyroidism, unspecified; I34.0 Nonrheumatic mitral (valve) insufficiency; Z95.2 Presence of prosthetic heart valve; E27.40 Unspecified adrenocortical insufficiency; Z85.828 Personal history of other malignant neoplasm of skin; Z87.891 Personal history of nicotine dependence
CPT/HCPCS: 88305; 88331; 88332; A9270-GY; J0690; J1100; J2250; J2405; J2704; J3010; J3490

== ENCOUNTER 2020-03-31 13:47 | Inpatient (IN) ==
[2020-03-31 16:00] LABS: Activated Partial Thrombo Time 30.6 seconds (26.0-38.0); INR 1.31 (0.82-1.09)
[2020-03-31 16:06] LABS: Hematocrit 27 % (42-52); Hemoglobin 9.6 g/dL (14.0-18.0); Mean Corpuscular HGB Conc 36 g/dL (31-36); Mean Corpuscular Hemoglobin 33 pg (27-31); Mean Corpuscular Volume 90 fL (80-94); Mean Platelet Volume 8.6 fL (7.4-10.4); Nucleated Red Blood Cells % 0.3; Platelet Count 71 10^3/uL (150-450); Red Blood Count 2.95 10^6 /uL (4.18-5.48); Red Cell Distribution Width 17 % (10-15); White Blood Count 6.9 10^3/uL (3.5-10.8)
[2020-03-31 16:11] LABS: Albumin/Globulin Ratio 0.7 (1-3); BUN/Creatinine Ratio 24.2 (8-20); Calcium 8.7 mg/dL (8.6-10.3); EGFR African American 89.2 (>60); EGFR Non-African American 73.7 (>60); Globulin 4.2 g/dL (2-4); Indirect Bilirubin 0.9 mg/dL (0.3-1.0); Total Bilirubin 1.2 mg/dL (0.2-1.0); Total Protein 7.2 g/dL (6.4-8.9)
[2020-03-31 16:16] LABS: Troponin I 0.01 ng/mL (<0.03)
[2020-03-31 17:17] LABS: RBC Parasite Smear Parasites Seen (No Parasite)
[2020-03-31 17:24] LABS: Microcytosis 1+; Polychromasia 2+
[2020-03-31 17:27] LABS: ABS Neutrophils 2.8 10^3/ul (1.5-7.7)
[2020-03-31 17:28] LABS: ABS Basophils 0.1 10^3/ul (0-0.2); ABS Eosinophils 0.1 10^3/ul (0-0.6)
[2020-03-31] MEDS ORDERED: Azithromycin 500 mg/250 ml NS 500 MG/250 ML BAG IVPB ONE (17:35)
[2020-03-31 18:17] LABS: Immature Retic Fraction 0.52
[2020-03-31 18:19] LABS: Corrected Retic Count 2.6 % (0.5-1.5); Hematocrit for Retic CNT 27 % (42-52); RBC Retic Count 2.95 10^6/uL (4.18-5.48)
[2020-03-31] MEDS ORDERED: NS 0.9% 1000 ml BAG 1,000 ML IV SCH (22:30)
[2020-03-31 23:11] LABS: Albumin 2.5 g/dL (3.2-5.2); Albumin/Globulin Ratio 0.7 (1-3); BUN/Creatinine Ratio 22.6 (8-20); Calcium 7.8 mg/dL (8.6-10.3); EGFR African American 95.8 (>60); EGFR Non-African American 79.2 (>60); Globulin 3.6 g/dL (2-4); Potassium 4.4 mmol/L (3.5-5.0); Total Bilirubin 1.1 mg/dL (0.2-1.0); Total Protein 6.1 g/dL (6.4-8.9)
[2020-04-01 07:03] LABS: Hematocrit 23 % (42-52); Hemoglobin 8.4 g/dL (14.0-18.0); Mean Corpuscular HGB Conc 36 g/dL (31-36); Mean Corpuscular Hemoglobin 32 pg (27-31); Mean Corpuscular Volume 90 fL (80-94); Mean Platelet Volume 8.1 fL (7.4-10.4); Platelet Count 62 10^3/uL (150-450); Red Cell Distribution Width 16 % (10-15); White Blood Count 7.9 10^3/uL (3.5-10.8)
[2020-04-01 07:19] LABS: % Iron Saturation 19 % (15-55); Iron 34 ug/dL (50-212); Total Iron Binding Capacity 175 mcg/dL (250-450); Transferrin 125 mg/dL (203-362); Unsaturated Iron Binding < 160 ug/dL
[2020-04-01 07:56] LABS: Ferritin > 1500.0 ng/mL (24-336)
[2020-04-01 08:54] LABS: ABS Lymphocytes 1.8 10^3/ul (1.0-4.8); ABS Monocytes 3.3 10^3/ul (0-0.8); ABS Neutrophils 2.8 10^3/ul (1.5-7.7); Eosinophil % 0.2 %; Lymphocyte % 22.5 %; Nucleated Red Blood Cells % 0.1
[2020-04-01] MEDS ORDERED: NS 0.9% 1000 ml BAG 1,000 ML IV ONE (17:18)
[2020-04-02 06:36] LABS: Hematocrit 21 % (42-52); Hemoglobin 7.3 g/dL (14.0-18.0); Mean Corpuscular HGB Conc 35 g/dL (31-36); Mean Corpuscular Hemoglobin 32 pg (27-31); Mean Corpuscular Volume 91 fL (80-94); Mean Platelet Volume 7.8 fL (7.4-10.4); Platelet Count 55 10^3/uL (150-450); Red Cell Distribution Width 17 % (10-15)
[2020-04-02 06:39] LABS: Albumin 2.1 g/dL (3.2-5.2); Albumin/Globulin Ratio 0.6 (1-3); Calcium 7.4 mg/dL (8.6-10.3); Globulin 3.3 g/dL (2-4); Potassium 4.1 mmol/L (3.5-5.0); Total Bilirubin 0.9 mg/dL (0.2-1.0); Total Protein 5.4 g/dL (6.4-8.9)
[2020-04-02 12:55] LABS: Hematocrit 23 % (42-52)
[2020-04-02 14:38] LABS: Haptoglobin <14 mg/dL (30 - 200)
[2020-04-03 05:33] LABS: ABS Eosinophils 0.1 10^3/ul (0-0.6); ABS Lymphocytes 2.4 10^3/ul (1.0-4.8); ABS Monocytes 2.3 10^3/ul (0-0.8); ABS Neutrophils 1.9 10^3/ul (1.5-7.7); Hematocrit 22 % (42-52); Hemoglobin 7.8 g/dL (14.0-18.0); Lymphocyte % 35.9 %; Mean Corpuscular HGB Conc 36 g/dL (31-36); Mean Corpuscular Hemoglobin 32 pg (27-31); Mean Corpuscular Volume 91 fL (80-94); Mean Platelet Volume 8.8 fL (7.4-10.4); Nucleated Red Blood Cells % 0.2; Platelet Count 58 10^3/uL (150-450); Red Blood Count 2.42 10^6 /uL (4.18-5.48); Red Cell Distribution Width 17 % (10-15); White Blood Count 6.7 10^3/uL (3.5-10.8)
[2020-04-03 05:44] LABS: Calcium 7.6 mg/dL (8.6-10.3); EGFR African American 122.8 (>60); EGFR Non-African American 101.5 (>60); Potassium 4.1 mmol/L (3.5-5.0)
[2020-04-03 09:19] VITALS: BP 114/54
[2020-04-03 09:31] LABS: Albumin 2.2 g/dL (3.2-5.2); Total Protein 5.6 g/dL (6.4-8.9)
[2020-04-03 10:04] LABS: Polychromasia 1+
[2020-04-05 13:53] LABS: Anaplasma phagocytophilum Negative (Negative); B. miyamotoi PCR, B Negative (Negative); Babesia divergens/MO-1 Negative (Negative); Babesia ducani Negative (Negative); Ehrlichia chaffeensis Negative (Negative); Ehrlichia ewingii/canis Negative (Negative); Ehrlichia muris eauclairensis Negative (Negative)
[2020-04-08 00:37] LABS: IgG Immunoblot Positive (Negative); IgM Immunoblot Negative (Negative)
== END 2020-04-03 13:45 | disposition home or self-care (01) | DRG 868 ==
LOC: ED 13:47 → MED 22:00
PROVIDERS: ADMIT Internal Medicine; ATTEND Internal Medicine

== ENCOUNTER 2021-12-08 05:54 | Observation (INO) ==
[2021-12-08] MEDS ORDERED: Buffered Lidocaine 1% SYRIN 1 ml INTRADERM ONE (06:00)
[2021-12-08] MEDS ORDERED: Famotidine IV 10 MG/ML 2 ml VIAL (20 mg) IV ONE (06:00)
[2021-12-08] MEDS ORDERED: Lactated Ringers 1000 ml BAG 1,000 ML IV SCH (06:00)
[2021-12-08] MEDS ORDERED: Famotidine IV 10 MG/ML 2 ml VIAL (20 mg) ONE (06:13)
[2021-12-08] MEDS ORDERED: Methylene Blue 0.5 % 50 MG/10 ML AMP IV ONE (06:58)
[2021-12-08] MEDS ORDERED: Dexamethasone IV 4 MG/ML VIAL 1 ml VIAL ONE (06:59)
[2021-12-08] MEDS ORDERED: Lidocaine 2% PF 5 ML VIAL ONE (06:59)
[2021-12-08] MEDS ORDERED: Ondansetron 4 mg VIAL 2 MG/ML 2 ml VIAL ONE (06:59)
[2021-12-08] MEDS ORDERED: Propofol 10 MG/ML 20 ML BTL ONE (06:59)
[2021-12-08] MEDS ORDERED: fentaNYL 100 mcg/2 ml 50 MCG/ML VIAL ONE ×3 (07:01→10:27)
[2021-12-08] MEDS ORDERED: Midazolam 2 mg/2 ml VIAL 1 mg/ml 2 ml VIAL (2 mg) ONE (07:01)
[2021-12-08] MEDS ORDERED: Rocuronium 50 mg VIAL 10 mg/ml 5 ml VIAL (50 mg) ONE (07:01)
[2021-12-08] MEDS ORDERED: Glycopyrrolate IV 0.2 MG/ML 1 ML VIAL ONE (08:04)
[2021-12-08] MEDS ORDERED: EPHEDrine (Pressors) 50 MG/ML VIAL ONE (08:07)
[2021-12-08] MEDS ORDERED: Remifentanil 2 MG VIAL ONE (08:21)
[2021-12-08] MEDS ORDERED: Phenylephrine IV 10 MG/ML 1 ml VIAL ONE (08:37)
[2021-12-08] MEDS ORDERED: Acetaminophen IV 1 GM/100ML 100 ML IV ONE (09:19)
[2021-12-08] MEDS ORDERED: Bacitracin OINTMENT TUBE ONE (09:38)
[2021-12-08] MEDS ORDERED: Naloxone 0.4 mg VIAL 0.4 mg/ml 1 ml VIAL IV PRN (09:49)
[2021-12-08] MEDS ORDERED: Ondansetron 4 mg VIAL 2 MG/ML 2 ml VIAL IV PRN (09:49)
[2021-12-08] MEDS: fentaNYL 100 mcg/2 ml 50 MCG/ML VIAL IV PRN ×2 (10:28→11:05)
[2021-12-08] MEDS ORDERED: HYDROcodone/ACETAMIN 5/325 mg TAB PO PRN (12:19)
[2021-12-08] MEDS: HYDROcodone/ACETAMIN 5/325 mg TAB PO PRN (13:08)
[2021-12-09] MEDS: HYDROcodone/ACETAMIN 5/325 mg TAB PO PRN (01:36)
[2021-12-09 05:41] LABS: ABS Lymphocytes 1.6 10^3/ul (1.0-4.8); ABS Monocytes 1.2 10^3/ul (0-0.8); ABS Neutrophils 7.3 10^3/ul (1.5-7.7); Eosinophil % 0.4 %; Hematocrit 33 % (42-52); Hemoglobin 11.5 g/dL (14.0-18.0); Lymphocyte % 15.6 %; Mean Corpuscular HGB Conc 34 g/dL (31-36); Mean Corpuscular Hemoglobin 32 pg (27-31); Mean Corpuscular Volume 94 fL (80-94); Mean Platelet Volume 7.8 fL (7.4-10.4); Platelet Count 178 10^3/uL (150-450); Red Blood Count 3.53 10^6 /uL (4.18-5.48); Red Cell Distribution Width 15 % (10-15); White Blood Count 10.1 10^3/uL (3.5-10.8)
[2021-12-09 05:58] LABS: Calcium 9.4 mg/dL (8.6-10.3)
[2021-12-09 06:14] LABS: eGFR CKD-EPI 71.9 (>60)
[2021-12-09 11:34] VITALS: BP 179/78
== END 2021-12-09 12:50 | disposition home or self-care (01) ==
LOC: SSU 05:54 → OR 05:54
PROVIDERS: ADMIT Otolaryngology; ATTEND Hospitalist

== ENCOUNTER 2022-08-07 12:47 | Observation (INO) ==
[2022-08-07] MEDS ORDERED: Ondansetron 4 mg VIAL 2 MG/ML 2 ml VIAL IV PRN (13:01)
[2022-08-07 13:33] LABS: Rapid COVID-19 Molecular Undetected (Undetected)
[2022-08-07] MEDS ORDERED: Lidocaine 2% JELLY 6 ML Topical TOPICAL ONE ×2 (13:41→14:12)
[2022-08-07] MEDS ORDERED: Midazolam 2 mg/2 ml VIAL 1 mg/ml 2 ml VIAL (2 mg) ONE (13:41)
[2022-08-07] MEDS ORDERED: fentaNYL 100 mcg/2 ml 50 MCG/ML VIAL ONE (13:41)
[2022-08-07 13:42] LABS: INR 1.31 (0.89-1.11)
[2022-08-07] MEDS ORDERED: Bupivacaine 0.25% SDV PF 10 ML VIAL INJ ONE (13:42)
[2022-08-07] MEDS ORDERED: ceFAZolin 1 GM ADVAN 1 GM ADDV.VIAL IVPB ONE (13:42)
[2022-08-07] MEDS ORDERED: Bupivacaine 0.5% PF 10 ML SDV VIAL INJ ONE (13:42)
[2022-08-07] MEDS: NS 0.9% 1000 ml BAG 1,000 ML IV SCH (16:39)
[2022-08-07] MEDS: Morphine 2 MG/ML SYRINGE IV PRN ×2 (16:40→21:39)
[2022-08-07] MEDS: Silver Sulfadiazine 1% 20 gm TUBE TOPICAL SCH ×2 (19:11→21:41)
[2022-08-07] MEDS: Morphine ER 15 mg TAB ** extended release PO SCH (21:41)
[2022-08-08] MEDS: Morphine 2 MG/ML SYRINGE IV PRN (03:12)
[2022-08-08] MEDS: NS 0.9% 1000 ml BAG 1,000 ML IV SCH (03:12)
[2022-08-08] MEDS: Morphine ER 15 mg TAB ** extended release PO SCH (07:49)
[2022-08-08 08:11] LABS: ABS Lymphocytes 0.1 10^3/ul (1.0-4.8); ABS Monocytes 0.8 10^3/ul (0-0.8); ABS Neutrophils 2.3 10^3/ul (1.5-7.7); Eosinophil % 0.1 %; Hematocrit 24 % (42-52); Hemoglobin 8.3 g/dL (14.0-18.0); Lymphocyte % 2.4 %; Mean Corpuscular HGB Conc 34 g/dL (31-36); Mean Corpuscular Hemoglobin 33 pg (27-31); Mean Corpuscular Volume 96 fL (80-94); Nucleated Red Blood Cells % 0.1; Platelet Count 188 10^3/uL (150-450); Red Blood Count 2.52 10^6 /uL (4.18-5.48); Red Cell Distribution Width 15 % (10-15); White Blood Count 3.1 10^3/uL (3.5-10.8)
[2022-08-08 08:39] LABS: Albumin 3.1 g/dL (3.2-5.2); Albumin/Globulin Ratio 1.1 (1-3); Calcium 8.9 mg/dL (8.6-10.3); Globulin 2.8 g/dL (2-4); Potassium 4.3 mmol/L (3.5-5.0); Total Bilirubin 0.4 mg/dL (0.2-1.0); Total Protein 5.9 g/dL (6.4-8.9); eGFR CKD-EPI 78.5 (>60)
[2022-08-08 11:24] VITALS: BP 140/72
[2022-08-08] MEDS: Silver Sulfadiazine 1% 20 gm TUBE TOPICAL SCH (11:46)
== END 2022-08-08 12:28 | disposition home or self-care (01) ==
LOC: MED 12:47 → SP 12:47
PROVIDERS: ADMIT Internal Medicine Hematology & Oncology; ATTEND Internal Medicine Hematology & Oncology